=== PATIENT | female | born 1975 | race Caucasian/White ===

== ENCOUNTER 2025-01-24 21:17 | Emergency (ER) | payer SELFPAY ==
[~2025-01-24] VITALS: Ht 160 cm; Wt 75.0 kg
[2025-01-24 21:20] VITALS: TEMP 36.3; O2SAT 99
[2025-01-24 22:17] VITALS: BP 155/99; PULSE 97; RESP 16
[2025-01-24] MEDS: IBUPROFEN 600MG TABLET PO ONE (22:17)
[2025-01-24] MEDS ORDERED: IBUP-2029 MT (22:34)
== END 2025-01-24 23:02 | disposition home or self-care (01) ==
LOC: ER 21:17
DX: S80.12XA Contusion of left lower leg, initial encounter (principal); W18.39XA Other fall on same level, initial encounter; Y93.89 Activity, other specified; Y92.89 Other specified places as the place of occurrence of the external cause; Y99.8 Other external cause status
CPT/HCPCS: 73562; 73590; 99284